=== PATIENT | female | born 1930 | race Hispanic/Latino ===

== ENCOUNTER 2018-04-11 07:15 | Inpatient (IN) | payer MEDICARE ==
[~2018-04-11] VITALS: Ht 160 cm; Wt 63.1 kg
[2018-04-11] VITALS (21 sets, daily range): BP systolic 95–197; BP diastolic 39–119
[~2018-04-11 07:15] MED LIST: CALC1CAP19 PO; ERGO400T7 PO; FERR500P12 PO; FURO20TA6 PO; LEVE10006 PO; LEVO75TA10 PO; METF500T6 PO; METO-408 PO; PREN-196 PO; SIMV40TA59 PO
[2018-04-11] MEDS ORDERED: PROPOFOL 1000 MG/100 ML 100 ML IV ONE ×2 (07:28→14:01)
[2018-04-11 08:44] LABS: BASOPHILS % (AUTO) 0.3 % (0.0-5.0); EOSINOPHILS % (AUTO) 0.1 % (0.0-8.0); HEMATOCRIT 37.9 % (36-48); LYMPHOCYTES % (AUTO) 7.1 % (21.0-51.0); MEAN CORPUSCULAR HEMOGLOBIN 32.4 pg (27.0-33.0); MEAN CORPUSCULAR HGB CONC 33.7 g/dL (32.0-36.0); MEAN CORPUSCULAR VOLUME 96.1 fL (79-99); MONOCYTES % (AUTO) 5.7 % (3.0-13.0); NEUTROPHILS % (AUTO) 86.8 % (40.0-77.0); PLATELET COUNT (AUTO) 143 K/uL (130-400); RED BLOOD CELL COUNT(AUTO) 3.94 MIL/uL (4.00-5.50); RED CELL DISTRIBUTION WIDTH 14.3 % (11.0-15.5); WHITE BLOOD COUNT (AUTO) 11.2 K/uL (4.8-10.8)
[2018-04-11 08:49] LABS: CREATININE 1.1 mg/dL (0.5-1.5)
[2018-04-11 08:54] LABS: ALBUMIN 3.5 g/dL (3.5-5.0); TOTAL PROTEIN, SERUM 7.8 g/dL (6.0-8.3)
[2018-04-11 08:57] LABS: INR 1.05 (0.85-1.15)
[2018-04-11 08:58] LABS: APPEARANCE,URINE Clear (CLEAR); BILIRUBIN,URINE Negative (NEGATIVE); COLOR,URINE Yellow (YELLOW); GLUCOSE, URINE (UA) Negative (NEGATIVE); KETONES,URINE Negative (NEGATIVE); LEUKOCYTE ESTERASE ,URINE Negative (NEGATIVE); NITRATE,URINE Negative (NEGATIVE); OCCULT BLOOD,URINE Negative (NEGATIVE); PH,URINE 7.5 (5.0-8.0); PROTEIN,URINE POS 2+ (NEGATIVE)
[2018-04-11 09:08] LABS: BACTERIA,URINE Few /HPF (None Seen); RBC,URINE 0-1 /HPF (0-1); WBC,URINE 0-1 /HPF (0-1)
[2018-04-11] MEDS ORDERED: SODIUM CHLORIDE 0.9% 100 ML IV ONE (09:30)
[2018-04-11] MEDS ORDERED: VALPROIC ACID (AS SODIUM SALT) 500 MG in SODIUM CHLORIDE 0.9% 100 ML IV SCH (10:00)
[2018-04-11] MEDS ORDERED: SUCCINYLCHOLINE CHLORIDE 20 MG/ML 10 ML VIAL IVP ONE (12:00)
[2018-04-11] MEDS ORDERED: ETOMIDATE 2 MG/ML 10 ML VIAL IVP ONE (12:00)
[2018-04-11] MEDS ORDERED: LEVETIRACETAM 500 MG in SODIUM CHLORIDE 0.9% 100 ML IV SCH (12:30)
[2018-04-11] MEDS ORDERED: PHARMACY COMMUNICATION MISC SCH (12:30)
[2018-04-11] MEDS ORDERED: NICARDIPINE HCL 100 MG in SODIUM CHLORIDE 0.9% 60 ML IV SCH (13:15)
[2018-04-11] MEDS ORDERED: HEPARIN SODIUM 5000UNIT/ML 1ML VIAL SQ SCH (13:30)
[2018-04-11 13:44] LABS: ABG BASE EXCESS 5.4 mmol/L (-2.0-3.0); ABG HCO3 24.8 mmol/L (21.0-28.0); ABG OXYGEN SATURATION 99.7 % (95.0-99.0); ABG PCO2 24 mmHg (32-45)
[2018-04-11] MEDS: VALPROIC ACID (AS SODIUM SALT) 500 MG in SODIUM CHLORIDE 0.9% 100 ML IV SCH (17:38)
[2018-04-11] MEDS: SODIUM CHLORIDE 0.9% 1000ML 1,000 ML IV SCH (17:40)
[2018-04-11] MEDS: ARTIFICAL TEARS SOL 15 ML OU SCH ×2 (17:43→17:47)
[2018-04-11] MEDS: INSULIN HUMULIN R 100 UNIT/ML 3ML SQ SCH ×2 (17:47→20:35)
[2018-04-11] MEDS ORDERED: PROPOFOL 1000 MG/100 ML IV PRN (18:45)
[2018-04-11] MEDS ORDERED: FENTANYL 2500MCG+NS 250ML 250 ML IV ONE (20:13)
[2018-04-11] MEDS ORDERED: FENTANYL 2500MCG+NS 250ML 250 ML IV PRN (20:15)
[2018-04-11] MEDS ORDERED: MIDAZOLAM 100MG-0.9% NS 100ML 100 ML IV PRN (20:15)
[2018-04-11] MEDS: METOPROLOL TARTRATE 25 MG TAB PO SCH (20:56)
[2018-04-11] MEDS: LEVETIRACETAM 1,000 MG in SODIUM CHLORIDE 0.9% 100 ML IV SCH (21:05)
[2018-04-12] VITALS (24 sets, daily range): BP systolic 81–166; BP diastolic 40–90
[2018-04-12] MEDS: INSULIN HUMULIN R 100 UNIT/ML 3ML SQ SCH ×4 (00:48→16:30)
[2018-04-12] MEDS: ARTIFICAL TEARS SOL 15 ML OU SCH ×4 (01:07→21:11)
[2018-04-12] MEDS: SODIUM CHLORIDE 0.9% 1000ML 1,000 ML IV SCH ×3 (01:07→13:15)
[2018-04-12] MEDS: VALPROIC ACID (AS SODIUM SALT) 500 MG in SODIUM CHLORIDE 0.9% 100 ML IV SCH ×3 (01:49→18:02)
[2018-04-12 04:03] LABS: ABG HCO3 24.2 mmol/L (21.0-28.0); ABG OXYGEN SATURATION 99.1 % (95.0-99.0); ABG PCO2 31 mmHg (32-45)
[2018-04-12 04:06] LABS: HEMATOCRIT 37.6 % (36-48); MEAN CORPUSCULAR HEMOGLOBIN 32.1 pg (27.0-33.0); MEAN CORPUSCULAR HGB CONC 33.9 g/dL (32.0-36.0); MEAN CORPUSCULAR VOLUME 94.7 fL (79-99); PLATELET COUNT (AUTO) 146 K/uL (130-400); RED BLOOD CELL COUNT(AUTO) 3.97 MIL/uL (4.00-5.50); RED CELL DISTRIBUTION WIDTH 14.6 % (11.0-15.5)
[2018-04-12 04:14] LABS: INR 1.07 (0.85-1.15); PARTIAL THROMBOPLASTIN TIME 28.7 SEC (26.3-35.5); PROTHROMBIN TIME 11.2 SEC (9.6-11.6)
[2018-04-12 04:41] LABS: MAGNESIUM 1.8 mg/dL (1.80-2.40); PHOSPHORUS 3.6 mg/dL (2.5-4.9); POTASSIUM 3.8 mmol/L (3.5-5.1); TROPONIN I 0.11 ng/mL (0.00-0.06)
[2018-04-12] MEDS: LEVETIRACETAM 1,000 MG in SODIUM CHLORIDE 0.9% 100 ML IV SCH ×3 (05:25→21:50)
[2018-04-12] MEDS: LEVOTHYROXINE 75 MCG TABLET PO SCH (06:46)
[2018-04-12] MEDS: FE FUMARATE/FA/MV, MIN COMB#15 1 TAB PO SCH (08:08)
[2018-04-12] MEDS: METOPROLOL TARTRATE 25 MG TAB PO SCH ×2 (08:08→22:25)
[2018-04-12] MEDS: FAMOTIDINE/PF 20 MG/2 ML VIAL IV SCH (08:08)
[2018-04-12] MEDS ORDERED: INSU100V SQ (13:00)
[2018-04-12] MEDS ORDERED: ACET325T51 PO (13:00)
[2018-04-12] MEDS ORDERED: APIX2.5T PO (13:00)
[2018-04-12] MEDS ORDERED: DIGO125T87 PO (13:00)
[2018-04-12] MEDS ORDERED: FURO20TA6 PO (13:00)
[2018-04-12] MEDS ORDERED: CARB15DR81 OS (13:00)
[2018-04-12] MEDS ORDERED: LEVE500T77 PO (13:00)
[2018-04-12] MEDS ORDERED: ATOR40TA71 PO (13:00)
[2018-04-12 13:34] LABS: ABG BASE EXCESS 1.5 mmol/L (-2.0-3.0); ABG HCO3 23.6 mmol/L (21.0-28.0); ABG PCO2 30 mmHg (32-45)
[2018-04-12 15:21] LABS: ABG BASE EXCESS -0.8 mmol/L (-2.0-3.0); ABG HCO3 23.4 mmol/L (21.0-28.0); ABG OXYGEN SATURATION 98.7 % (95.0-99.0); ABG PCO2 38 mmHg (32-45)
[2018-04-13] VITALS (16 sets, daily range): BP systolic 112–152; BP diastolic 44–86
[2018-04-13] MEDS: SODIUM CHLORIDE 0.9% 1000ML 1,000 ML IV SCH ×3 (00:55→21:27)
[2018-04-13] MEDS: ARTIFICAL TEARS SOL 15 ML OU SCH ×4 (01:13→21:43)
[2018-04-13] MEDS: VALPROIC ACID (AS SODIUM SALT) 500 MG in SODIUM CHLORIDE 0.9% 100 ML IV SCH ×3 (02:32→17:21)
[2018-04-13 03:54] LABS: HEMATOCRIT 37.5 % (36-48); MEAN CORPUSCULAR HEMOGLOBIN 32.3 pg (27.0-33.0); MEAN CORPUSCULAR HGB CONC 33.7 g/dL (32.0-36.0); MEAN CORPUSCULAR VOLUME 95.8 fL (79-99); PLATELET COUNT (AUTO) 133 K/uL (130-400); RED BLOOD CELL COUNT(AUTO) 3.92 MIL/uL (4.00-5.50); RED CELL DISTRIBUTION WIDTH 14.1 % (11.0-15.5); WHITE BLOOD COUNT (AUTO) 16.2 K/uL (4.8-10.8)
[2018-04-13 04:15] LABS: ALBUMIN 2.8 g/dL (3.5-5.0); BILIRUBIN,TOTAL 1.7 mg/dL (0.2-1.0); CREATININE 0.9 mg/dL (0.5-1.5); POTASSIUM 3.7 mmol/L (3.5-5.1); TOTAL PROTEIN, SERUM 6.9 g/dL (6.0-8.3)
[2018-04-13] MEDS: LEVETIRACETAM 1,000 MG in SODIUM CHLORIDE 0.9% 100 ML IV SCH ×3 (05:53→21:27)
[2018-04-13] MEDS: INSULIN HUMULIN R 100 UNIT/ML 3ML SQ SCH ×4 (06:14→21:00)
[2018-04-13] MEDS: LEVOTHYROXINE 75 MCG TABLET PO SCH (06:26)
[2018-04-13] MEDS: FAMOTIDINE/PF 20 MG/2 ML VIAL IV SCH (08:16)
[2018-04-13] MEDS: METOPROLOL TARTRATE 25 MG TAB PO SCH ×2 (08:17→21:28)
[2018-04-13] MEDS: FE FUMARATE/FA/MV, MIN COMB#15 1 TAB PO SCH (08:17)
[2018-04-13] MEDS ORDERED: ACETAMINOPHEN 325 MG TAB PO PRN (11:00)
[2018-04-13] MEDS ORDERED: COMPOUND IV MISC 1 EACH IVSOLN MISC PRN (13:15)
[2018-04-13] MEDS ORDERED: APIXABAN 5 MG TABLET PO SCH (21:00)
[2018-04-13] MEDS ORDERED: ATORVASTATIN CALCIUM 40 MG TABLET PO SCH (21:00)
[2018-04-13] MEDS: APIXABAN 2.5 MG TABLET PO SCH (21:27)
[2018-04-14] VITALS: BP 126/84
[2018-04-14] MEDS: ARTIFICAL TEARS SOL 15 ML OU SCH ×2 (01:30→06:38)
[2018-04-14] MEDS: VALPROIC ACID (AS SODIUM SALT) 500 MG in SODIUM CHLORIDE 0.9% 100 ML IV SCH ×2 (03:39→11:38)
[2018-04-14 04:00] VITALS: BP 134/64
[2018-04-14 05:42] LABS: CREATININE 0.8 mg/dL (0.5-1.5); POTASSIUM 3.4 mmol/L (3.5-5.1)
[2018-04-14 05:48] LABS: HEMATOCRIT 34.7 % (36-48); MEAN CORPUSCULAR HEMOGLOBIN 33.3 pg (27.0-33.0); MEAN CORPUSCULAR HGB CONC 34.8 g/dL (32.0-36.0); MEAN CORPUSCULAR VOLUME 95.8 fL (79-99); PLATELET COUNT (AUTO) 124 K/uL (130-400); RED BLOOD CELL COUNT(AUTO) 3.62 MIL/uL (4.00-5.50); RED CELL DISTRIBUTION WIDTH 14.4 % (11.0-15.5); WHITE BLOOD COUNT (AUTO) 7.8 K/uL (4.8-10.8)
[2018-04-14] MEDS: LEVETIRACETAM 1,000 MG in SODIUM CHLORIDE 0.9% 100 ML IV SCH (06:37)
[2018-04-14] MEDS: LEVOTHYROXINE 75 MCG TABLET PO SCH (06:37)
[2018-04-14] MEDS: INSULIN HUMULIN R 100 UNIT/ML 3ML SQ SCH ×2 (06:38→11:30)
[2018-04-14 08:29] VITALS: BP 123/62
[2018-04-14] MEDS ORDERED: DIGOXIN 125 MCG TABLET PO SCH (09:00)
[2018-04-14] MEDS ORDERED: FUROSEMIDE 20 MG TABLET PO SCH (09:00)
[2018-04-14] MEDS: METOPROLOL TARTRATE 25 MG TAB PO SCH (09:57)
[2018-04-14] MEDS: FAMOTIDINE/PF 20 MG/2 ML VIAL IV SCH (09:57)
[2018-04-14] MEDS: FE FUMARATE/FA/MV, MIN COMB#15 1 TAB PO SCH (09:57)
[2018-04-14] MEDS: SODIUM CHLORIDE 0.9% 1000ML 1,000 ML IV SCH (09:58)
[2018-04-14] MEDS: APIXABAN 2.5 MG TABLET PO SCH (09:58)
[2018-04-14 11:58] VITALS: BP 141/66
[2018-04-14 16:06] VITALS: BP 159/71
== END 2018-04-14 16:50 | DRG 208 ==
LOC: EDH 07:15 → EDHIP 09:25 → 2CH 12:18 → 3BH 04-13 13:30
PROVIDERS: ADMIT Internal Medicine; ATTEND Internal Medicine
PROC: 0BH17EZ Insertion of Endotracheal Airway into Trachea, Via Natural or Artificial Opening (ICD-10-PCS; principal; 2018-04-11)
PROC: 5A1945Z Respiratory Ventilation, 24-96 Consecutive Hours (ICD-10-PCS; 2018-04-11)
DX: J96.20 Acute and chronic respiratory failure, unspecified whether with hypoxia or hypercapnia (principal); I48.91 Unspecified atrial fibrillation; J44.9 Chronic obstructive pulmonary disease, unspecified; I50.32 Chronic diastolic (congestive) heart failure; I11.0 Hypertensive heart disease with heart failure; G40.901 Epilepsy, unspecified, not intractable, with status epilepticus; R13.10 Dysphagia, unspecified; G30.9 Alzheimer's disease, unspecified; E11.9 Type 2 diabetes mellitus without complications; E78.5 Hyperlipidemia, unspecified; F02.80 Dementia in other diseases classified elsewhere, unspecified severity, without behavioral disturbance, psychotic disturbance, mood disturbance, and anxiety; I25.10 Atherosclerotic heart disease of native coronary artery without angina pectoris; K21.9 Gastro-esophageal reflux disease without esophagitis; D32.9 Benign neoplasm of meninges, unspecified; Z95.1 Presence of aortocoronary bypass graft; Z79.01 Long term (current) use of anticoagulants; Z95.810 Presence of automatic (implantable) cardiac defibrillator
CPT/HCPCS: 31500; 36415; 36600; 70450; 71045; 80048; 80053; 80177; 81001; 82550; 82553; 82803; 82948; 83605; 83735; 83874; 84100; 84443; 84484; 85025; 85027; 85610; 85730; 93005; 94002; 94003; 95819; 99291; J0330; J1815; J1953; J2704; J3010; J3490; J7030